=== PATIENT | female | born 1965 | race Caucasian/White ===

== ENCOUNTER 2016-05-06 05:07 | Inpatient (IN) | payer OTHER ==
[2016-05-02 12:07] LABS: HEMATOCRIT 36.2 % (36.0-48.0); HEMOGLOBIN 11.8 g/dL (12.0-16.0)
--- NOTE | ~2016-05-06 | OP ---
Record Of Operation [facility] [address] [place]. [address] NAME: DEREJE LEOS : 61 STATUS : ADM IN PAT#: [id number] AGE: 50 ADM/REG DATE : 05/06/16 MR#: [id number] REPORT SERV DATE: 05/07/16 DICTATED BY: EMERSON LUJAN II DATE: 05/07/16 REPORT STATUS : Draft TRANSCRIBED BY: MODCarola DATE: 05/07/16 DATE OF PROCEDURE: 05/06/2016 PREOPERATIVE DIAGNOSES: 1. 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 2. History of multiple thoracolumbar surgeries. 3. Cervicothoracic kyphosis, [id number] wound. 4. Failed spinal column stimulator system. 5. Sacroiliac joint dysfunction. POSTOPERATIVE DIAGNOSES: 1. 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 2. History of multiple thoracolumbar surgeries. 3. Cervicothoracic kyphosis, [id number]-ic-[id number] wound. 4. Failed spinal column stimulator system. 5. Sacroiliac joint dysfunction. PROCEDURE: 1. Pedicle subtraction osteotomy (lumbar three-column osteotomy, CPT code 2207). 2. Herzog-Saul osteotomies (posterior column osteotomy, CPT 2214). 3. Laminectomy and facetectomy L2-3, L3-4. 4. Posterolateral arthrodesis L2-3, L3-4. 5. Sacroiliac joint arthrodesis. 6. Removal of instrumentation T11-S1. 7. T12-S1 re-instrumentation. 8. Use of sacroiliac fixation (fixation to the ilium), use of bone morphogenic protein, and local autograft and allograft substitute. 9. Anterior interbody arthrodesis at L3. 10.Use of stereotactic imaging. 11.Removal of the spinal column stimulator leads and battery. SURGEON: Emerson Lujan M.D. FLUIDS: 1. 4200 mL LR. 2. 300 mL Cell Saver. 3. 500 mL albumin. ESTIMATED BLOOD LOSS: 500 mL. IMPLANTS: Alphatec and Globus. ANTIBIOTIC: Preoperatively. COMPLICATIONS: None. Record Of Operation [facility] [address] [place] [place]. [address] NAME: DEREJE LEOS : 61 STATUS : ADM IN PAT#: [id number] AGE: 50 ADM/REG DATE : 05/06/16 MR#: [id number] REPORT SERV DATE: 05/07/16 DICTATED BY: EMERSON LUJAN II DATE: 05/07/16 REPORT STATUS : Draft TRANSCRIBED BY: KALE DATE: 05/07/16 PREOPERATIVE HISTORY: This is a friendly, 50-year-old female with a very complicated surgical past. She had a high thoracic to lumbar fusion for scoliosis done very long ago. 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 She reports that she has been to several institutions including [place] and [place]. She overall has been very upset with her sagittal balance. She has severe flatback deformity. I have seen her in the office as well as talked to her on the phone regarding this severe problem. I have discussed also with one of my colleagues and reviewed her standing photographs of her stature showing her severe imbalance as well as standing scoliosis films. Her flatback deformity is severe and her positive sagittal imbalance shows a alexa line approximately 10 cm anterior to the center of the S1 vertebral body. I discussed with her that this will be a very large surgery. She was very interested in surgery to try and decrease her back pain. We also discussed that this is a very large surgery with significant complications, which could occur including neurologic complications from the pedicle subtraction osteotomy, and has also a risk of infection, as well as CSF leak, as well as DVT and pulmonary embolus. We discussed the fact that she would also need some pre and postop therapy for the hamstring stretching. We also discussed the recovery and the fact that nonunion with hardware failure was an approximately 8% to 10% complication and could require additional surgery. DESCRIPTION OF PROCEDURE: After informed consent was obtained, the patient was brought to the operating room at her request and general anesthesia achieved. Overall, this is a very complex case and overall took approximately eight hours. The surgery was intense from a time perspective and from a work perspective. We worked diligently during this time and overall, ultimately were satisfied with the intraoperative technical correction. At this point, after prepping and draping was performed, the incision was performed from approximately T10 down to the pelvis. The dissection was carried down. She had a the robust fusion mass at multiple levels, which required the use of multiple burs throughout the case to perform the surgery as well as remove bone from around the screws to facilitate hardware removal. The hardware removal was extremely difficult. We ultimately used a metal cutting bur to amputate the rods at approximately T10. We then removed the hardware from T10 down to the S1. There was a broken screw in the right L5 pedicle, which was impossible to remove. At this point, we then performed irrigation throughout the case. At this point, we then placed our screws. We placed new instrumentation into T12. We used stereotactic guidance with the CT scan. We were able to then place some new screws in the old holes and also placed some new screws in some of the pedicles, which had not been instrumented previously. At S1, we were able to place a screw as well. Next, we then used the Globus sacroiliac fixation device. This was a separate plate. We were able to use stereotactic guidance to cross the sacroiliac joint, as well as decorticate the cranial portion of this joint. At this point, we irrigated the area. Next, the 80 mm screws were placed into the ilium bilaterally. This was an 8.5 mm screw. Again, these were placed bilaterally. This was placed through the Globus sacroiliac plate. Record Of Operation [facility] [address] [facility] [place]. [address] NAME: DEREJE LEOS : 61 STATUS : ADM IN [facility]#: [id number] AGE: 50 ADM/REG DATE : 05/06/16 MR#: [id number] REPORT SERV DATE: 05/07/16 DICTATED BY: EMERSON LUJAN II DATE: 05/07/16 REPORT STATUS : Draft TRANSCRIBED BY: MODCarola DATE: 05/07/16 Next, we then used several different burs to now begin to break through the severe amount of fusion bone. We were able to use stereotactic guidance to remove the fusion bone from L2 down to L4. At this point, we then performed an aggressive facetectomy and laminectomy to decompress the L2, L3, and L4 nerve roots. This was done also in anticipation of three-column pedicle subtraction osteotomy. We now were able to well visualized the pedicles of L2, L3, and L4. We also were able to visualize the nerve roots of L2 and L3. At this point, we then began the complex task of the pedicle subtraction osteotomy. We then used the combination of the rongeurs and the high-speed bur to now remove the pedicle down to its entry point into the vertebral body. We then performed retraction of the L3 nerve root. Next, we then continued with the three-column pedicle subtraction osteotomy with the 6 mm coarse delvis. At this point, we were able to work through the pedicle under loupe magnification and head lamp to remove the cancellous bone. We then dissected along the lateral aspect of the vertebral body and placed a malleable. I was able to use stereotactic guidance to confirm the malleable was at anterolateral portion of the vertebral body. We were able to then break through the cortex of the vertebral body of L3. We also again then continued to remove cancellous bone from within the vertebral body up to the anterior portion of the vertebral body of L3. I then walked around to the opposite side of the table whereupon a similar takedown of the pedicle and the pedicle subtraction osteotomy was carried out through the right pedicle of L3. Once again, we then placed a malleable along the cortex of L3. We were now able to use the bur to break the cortex of the vertebral body laterally at L3. We once again removed cancellous bone using the large 6 mm bur. At this point, I felt we had achieved a significant amount of bone removal in preparation for the three-column pedicle subtraction osteotomy. At this point, we then placed a stabilizing short diandra from L2-L4 bilaterally. We already discussed preoperatively the for placing a small bump underneath her chest. At this point, the circulating nurse and NOTE SPECIALIST were able to place the bump underneath the chest. This was while we directly observed the osteotomy site and the dura. At this point, we then loosened all the set screws bilaterally to allow the osteotomy to close down and the significant correction of her deformity occurred. At this point, I was pleased with the coronal and sagittal balance. We then re-tightened both of the short rods to hold this correction and we then used AP and lateral imaging with the O-arm to confirm adequate correction. We were able to confirm that we had significantly shortened the posterior vertebral body in posterior column. At this point, we then contoured the longer rods and then placed the right diandra while the short static diandra was in place. The same was then performed on the left. Final tightening was then performed of the instrumentation from T12 to the ilium. Copious irrigation was then once again performed. Record Of Operation [facility] [address] [place]. [address] NAME: DEREJE LEOS : 61 STATUS : ADM IN PAT#: [id number] AGE: 50 ADM/REG DATE : 05/06/16 MR#: [id number] REPORT SERV DATE: 05/07/16 DICTATED BY: EMERSON LUJAN II DATE: 05/07/16 REPORT STATUS : Draft TRANSCRIBED BY: KALE DATE: 05/07/16 At this point. We then decorticated the sacroiliac joint bilaterally and placed local autograft and bone morphogenic protein. We then decorticated the lateral fusion mass of L2 and L4. The L3 transverse prostheses obviously had now been removed during the pedicle subtraction osteotomy. At this point, please note prior to closure of the osteotomy, we did place significant amount of local autograft, back into the very anterior portion of this to also help serve as a pivot point. We also placed some allograft substitute. At this point, the deep drain was placed x2. At this point, we then performed a muscle layer closure, followed by the fascial closure. The fascia was then closed followed by use of Aricept. Vancomycin powder was then also used followed by standard closure with PDS suture. Monocryl closure frank and also Dermabond. Standard dressings were applied. The patient was then extubated and transferred to PACU in stable condition. GUERO/KALE Emerson Lujan II, M.D. / [id number] CC: Emerson Lujan II, M.D.
--- NOTE | ~2016-05-06 | CN ---
Consultation Report [address] [place]. [address] NAME: DEREJE LEOS : 61 STATUS : ADM IN PAT#: [id number] AGE: 50 ADM/REG DATE : 05/06/16 MR#: [id number] REPORT SERV DATE: 05/08/16 DICTATED BY: BRANDY BARON DATE: 05/08/16 REPORT STATUS : Draft TRANSCRIBED BY: MODL DATE: 05/08/16 CONSULTATION DATE OF CONSULTATION: 05/08/2016 CONSULTATION REASON: Anemia. CONSULTING PHYSICIAN: Dr. Lujan and his PA. HISTORY OF PRESENT ILLNESS: This is a 50-year-old, with a complicated back surgery history, who was electively admitted to hospital for an elective back surgery. According to the information available, she had a very long operation room staying and estimated blood loss was 500 mL. Postoperative day #2 today, her H and H was found to be 5.6 and 17.1 from preop 11.82 and 36.2. Therefore, the hospitalist service was called for anemia evaluation and treatment. The patient already had order for transfused two units of blood. She finished the second unit of blood, and currently she feels comfortable. She did well with the physical therapy today. She was able to walk to the room through the room door. She is eating and drinking. She is more alert today. According to the report, she was very lethargic up until yesterday. She denies seeing any other blood. She does have a NILAM drain, two of them, and one of the drain is still draining about close to 500 mL for the last two days. REVIEW OF SYSTEMS: Denies any dizziness and shortness of breath. Then, denies any chest pain. No cough. Denies seeing any blood anywhere. Denies any dysuria. All of the systems reviewed and negative. PAST MEDICAL HISTORY: 1. Chronic back pain. 2. Chronic pain management. 3. Migraine. 4. Cleft palate. 5. Hearing aids, and the patient is hard of hearing. 6. Asthma. 7. GERD. 8. Hypothyroidism. SURGERIES: Consultation Report [address] [place]. [address] NAME: DEREJE LEOS : 61 STATUS : ADM IN PAT#: [id number] AGE: 50 ADM/REG DATE : 05/06/16 MR#: [id number] REPORT SERV DATE: 05/08/16 DICTATED BY: BRANDY BARON DATE: 05/08/16 REPORT STATUS : Draft TRANSCRIBED BY: KALE DATE: 05/08/16 1. Had an ear surgery as a child and a mouth surgery, and back surgery multiple times. 2. Cholecystectomy. 3. Colonoscopy. SOCIAL HISTORY: Denies any smoking and alcohol use. MEDICATIONS AT HOME: ProAir as needed, Klonopin 2 mg once at bedtime, Voltaren gel four times a day as needed, Flonase spray twice a day, Breo one puff twice a day, Neurontin 1200 mg three times a day, levothyroxine 125 mcg once a day, Lidoderm patch as needed, Claritin 10 mg once as needed, morphine sustained release 30 mg every 12 hours, Zantac 300 mg once at bedtime, Requip 0.5 mg once at bedtime, Imitrex 100 mg as needed for migraine, Zanaflex 6 mg twice a day as needed, and Ultram 50 mg four times a day. PHYSICAL EXAMINATION: VITAL SIGNS: Blood pressure 107/53, pulse was 100, temperature is 98.1, saturation is 99% on 3 L of oxygen, respiratory rate is 19. GENERAL APPEARANCE: She is alert, awake, not in acute distress. The patient has a very nasal congested sound. HEENT: Pupils are equal, round, and reactive to light. Conjunctivae, not anemic at the current moment. CHEST: Clear to auscultation bilaterally. Has a normal respiratory effort. CARDIOVASCULAR: There is no murmur, rub, or gallop, but is slightly tachycardic. ABDOMEN: Bowel sounds present. Soft. There is no organomegaly appreciated. EXTREMITIES: There is no pitting edema. LABORATORY DATA: Showed a hemoglobin was 5.6, hematocrit was 17.1, platelets 160, WBC was 10.2. ASSESSMENT/PLAN: 1. Acute blood loss anemia. 2. Postop anemia. 3. Chronic pain, stable. 4. The patient will be transfused one more unit of packed RBC. We will stop the IV fluids. Pain control will be done by oral medication per Surgery. We will watch and monitor NILAM drain amount, if they continue to have increased amount, the patient might need a surgical intervention. We will pay attention to this monitoring. EKL/MODL Brandy Baron M.D. / [id number] Consultation Report [address] [place]. [address] NAME: DEREJE LEOS : 61 STATUS : ADM IN PAT#: [id number] AGE: 50 ADM/REG DATE : 05/06/16 MR#: [id number] REPORT SERV DATE: 05/08/16 DICTATED BY: BRANDY BARON DATE: 05/08/16 REPORT STATUS : Draft TRANSCRIBED BY: KALE DATE: 05/08/16 CC: George Lujan II, M.D.
--- NOTE | ~2016-05-06 | DS ---
Discharge Summary [place] [place] [address] [place]. [address] NAME: DEREJE LEOS : 61 STATUS : DIS IN PAT#: [id number] AGE: 50 ADM/REG DATE : 05/06/16 MR#: [id number] REPORT SERV DATE: 05/24/16 DICTATED BY: EMERSON LUJAN II DATE: 05/23/16 REPORT STATUS : Draft TRANSCRIBED BY: KALE DATE: 05/23/16 Data Collection from hospitalization DISCHARGE DIAGNOSES: 1. Flat back deformity with severe loss of sagittal balance. 2. History of multiple thoracolumbar surgeries. 3. Cervicothoracic kyphosis - vnec-wf-qedunwsw wound. 4. Failed spinal column stimulator system. 5. Sacroiliac joint dysfunction. 6. Cleft palate. 7. Asthma. 8. Hypothyroidism. 9. Gastroesophageal reflux disease. 10.Hearing impairment. 11.Migraines. 12.Chronic back pain. CONSULTATIONS: Brandy Jensen M.D. PROCEDURES PERFORMED: Pedicle subtraction osteotomy (lumbar three-column osteotomy, CPT code 2207); Herzog-Saul osteotomy (posterior column osteotomy, CPT code 2214); laminectomy and facetectomy, L2-L3 and L3-L4; posterolateral arthrodesis, L2-L3 and L3-L4; sacroiliac joint arthrodesis; removal of instrumentation T11-S1; T12-S1 re-instrumentation; use of sacroiliac fixation (fixation to the ilium); use of bone morphogenic protein and local autograft and allograft substitute; anterior interbody arthrodesis at L3; use of stereotactic imaging; removal of spinal column stimulator leads and battery on 05/06/2016. PATHOLOGY: Lumbar spine removal and repair - orthopedic hardware (gross assessment). Fragmented bone and soft tissue with focal reactive and regenerative changes. No evidence was seen of an infectious or neoplastic process. MEDICATIONS: ProAir two puffs via inhaler every six hours as needed, Klonopin 2 mg at bedtime, Valium 5 mg three times a day as needed, Voltaren 2 g topically four times a day as needed, Flonase nasal spray one spray nasally twice a day, Breo Ellipta one puff via inhaler twice a day, Neurontin 1200 mg three times a day, levothyroxine 125 mcg at bedtime, Lidoderm one patch topically daily as needed, Claritin 10 mg daily as needed, Callie 30 mg every 12 hours as needed, Percocet 10/325 one to two tablets every four hours as needed, Phenergan 25 mg every six hours as needed, Zantac 300 mg at bedtime, Requip 0.5 mg at bedtime, Imitrex 100 mg as needed, Zanaflex 6 mg twice a day as needed, and Ultram 50 mg four times a day. CONDITION AT DISCHARGE: Stable. DISPOSITION: The patient was discharged home on a regular diet with activities as instructed. She would follow up with me on 05/31/2016. HOSPITAL COURSE: This is a 50-year-old female who had been complaining of lumbar spine- related symptoms. The symptoms were located in the lower back with radiation into the bilateral lower extremities with associated numbness and weakness. The patient has flat Discharge Summary [address] [place]. [address] NAME: DEREJE LEOS : 61 STATUS : DIS IN PAT#: [id number] AGE: 50 ADM/REG DATE : 05/06/16 MR#: [id number] REPORT SERV DATE: 05/24/16 DICTATED BY: EMERSON LUJAN II DATE: 05/23/16 REPORT STATUS : Draft TRANSCRIBED BY: KALE DATE: 05/23/16 back deformity with severe loss of sagittal balance and history of multiple thoracolumbar surgeries. She has cervicothoracic kyphosis, failed spinal column stimulator system, and sacroiliac joint dysfunction. Treatment options were discussed and it was elected to proceed with surgical intervention. She was admitted to the hospital at this time for further evaluation and treatment. Upon admission, she was taken to the operating room where she underwent the above-mentioned procedure. She tolerated this well, and there were no complications. On postop day #1, she was unsure of any improvement as she had not been out of bed yet. She was encouraged to mobilize. On 05/08/2016, she seemed to be more alert. She had good pain control. She was transfused as her H and H were somewhat low. She was slow to begin with mobilization. She was seen by Dr. Brandy Jensen regarding anemia. H and H had decreased to 5.6 and 17.1 from preoperative values of 11.82 and 36.2. She had been transfused two units of blood. She currently felt comfortable. She had done well with Physical Therapy earlier in the day, she was able to walk around in the room. She was more alert and was eating and drinking. She was felt to have acute blood loss anemia and postop anemia. Her chronic pain was stable. She was going to be transfused one more unit of packed red blood cells. IV fluids were going to be stopped. Pain control would be performed with oral medications. We would monitor the amount of NILAM drainage. On 05/09/2016, her lungs remained clear. She had no edema. Her abdomen was soft and nontender. Respiratory effort was normal. She said her pain was 8/10. She said her usual pain at home was 6/10. Milk of magnesia, senna, and Dulcolax were given. Synthroid was continued. O2 was being weaned. Imitrex would be given as needed for chronic migraine. She was evaluated by Physical Therapy. On 05/10/2016, her sagittal balance was much better. Orthostatic blood pressures were checked. She continued to progress. She continued to say she had horrible pain. She had been up all night. She was crying. Discharge planning was performed. On 05/12/2016, the patient said she was feeling much better. Her current pain was 6/10. She said she felt like the operation was a success. Discharge instructions were given. Due to her improved and stable condition, she was discharged home with the above-stated instructions. Information collected by: Emma Green I submit the above information as my discharge summary. TG/MODL Emerson Lujan II, M.D. / [id number] CC: Carol Nagel II, MD
[~2016-05-06 05:07] MED LIST: BREO ELLIPTA INH; CLARIT10 PO; FLONASE NAS; IMITREX100 MG PO; KADIANSR30 PO; KLONO1 PO; LEVOTHYROXIN25 MCG PO; LIDODERM TOP; NEUR600 PO; PR25 PO; PROAIRRESP INH; RANITIDINE300 MG PO; REQUIP1 PO; ULTRAM50 PO; VOLTAREN1 % TOP; ZANAFLEX 4 MG TA4 MG PO
[2016-05-07 05:19] LABS: BASOPHILS 0.1 %; BASOPHILS ABSOLUTE 0.02 10/3/uL (0.0-0.16); EOSINOPHILS 0.1 %; EOSINOPHILS ABSOLUTE 0.01 10/3/uL (0.0-0.53); HEMATOCRIT 22.9 % (36.0-48.0); HEMOGLOBIN 7.6 g/dL (12.0-16.0); IMMATURE GRANULOCYTES 0.4 %; IMMATURE GRANULOCYTES ABSOLUTE 0.07 10/3/uL (0.0-0.11); LYMPHOCYTES 4.5 %; LYMPHOCYTES ABSOLUTE 0.83 10/3/uL (0.67-4.30); MEAN CORPUS HGB CONC 33.2 g/dL (32.0-36.0); MEAN CORPUSCULAR HEMOGLOB 28.4 pg (26.0-34.0); MEAN CORPUSCULAR VOLUME 85.4 fL (80-100); MONOCYTES 2.7 %; MONOCYTES ABSOLUTE 0.51 10/3/uL (0.21-1.20); NEUTROPHILS 92.2 %; NEUTROPHILS ABSOLUTE 17.16 10/3/uL (2.02-8.40); PLATELET COUNT 171 10/3/uL (150-400); RBC DISTRIBUTION WIDTH 13.3 % (12.0-16.0); RED CELL COUNT 2.68 10/6/uL (4.0-5.6); WHITE BLOOD CELLS 18.6 10/3/uL (4.5-10.5)
[2016-05-07 05:20] LABS: MANUAL DIFF NO %
[2016-05-08 05:10] LABS: BASOPHILS 0 %; EOSINOPHILS 0.1 %; EOSINOPHILS ABSOLUTE 0.01 10/3/uL (0.0-0.53); HEMATOCRIT 17.1 % (36.0-48.0); HEMOGLOBIN 5.6 g/dL (12.0-16.0); IMMATURE GRANULOCYTES 0.5 %; IMMATURE GRANULOCYTES ABSOLUTE 0.05 10/3/uL (0.0-0.11); LYMPHOCYTES 11.2 %; LYMPHOCYTES ABSOLUTE 1.14 10/3/uL (0.67-4.30); MEAN CORPUS HGB CONC 32.7 g/dL (32.0-36.0); MEAN CORPUSCULAR HEMOGLOB 28.6 pg (26.0-34.0); MEAN CORPUSCULAR VOLUME 87.2 fL (80-100); MONOCYTES 7.8 %; MONOCYTES ABSOLUTE 0.79 10/3/uL (0.21-1.20); NEUTROPHILS 80.4 %; NEUTROPHILS ABSOLUTE 8.17 10/3/uL (2.02-8.40); PLATELET COUNT 160 10/3/uL (150-400); RBC DISTRIBUTION WIDTH 13.8 % (12.0-16.0); RED CELL COUNT 1.96 10/6/uL (4.0-5.6); WHITE BLOOD CELLS 10.2 10/3/uL (4.5-10.5)
[2016-05-08 05:12] LABS: MANUAL DIFF NO %
[2016-05-09 05:22] LABS: BASOPHILS 0 %; EOSINOPHILS 1.4 %; EOSINOPHILS ABSOLUTE 0.13 10/3/uL (0.0-0.53); IMMATURE GRANULOCYTES 0.2 %; IMMATURE GRANULOCYTES ABSOLUTE 0.02 10/3/uL (0.0-0.11); LYMPHOCYTES 20.3 %; LYMPHOCYTES ABSOLUTE 1.85 10/3/uL (0.67-4.30); MEAN CORPUS HGB CONC 33.1 g/dL (32.0-36.0); MEAN CORPUSCULAR HEMOGLOB 28.5 pg (26.0-34.0); MEAN CORPUSCULAR VOLUME 86.2 fL (80-100); MEAN PLATELET VOLUME 10.3 fL (9.2-13.0); MONOCYTES 9.2 %; MONOCYTES ABSOLUTE 0.84 10/3/uL (0.21-1.20); NEUTROPHILS 68.9 %; NEUTROPHILS ABSOLUTE 6.29 10/3/uL (2.02-8.40); PLATELET COUNT 151 10/3/uL (150-400); RBC DISTRIBUTION WIDTH 15.4 % (12.0-16.0); WHITE BLOOD CELLS 9.1 10/3/uL (4.5-10.5)
[2016-05-09 05:30] LABS: BUN (BLOOD UREA NITROGEN) 7 MG/DL (6-23); CALCIUM, SERUM 7.8 MG/DL (8.5-10.4); CHLORIDE, SERUM 104 MMOL/L (96-112); CO2 (CARBON DIOXIDE) 34 MMOL/L (24-34); GFR AFRICAN AMERICAN 129 ML/MIN (>=60); GFR NON AFRICAN AMERICAN 111 ML/MIN (>=60); GLUCOSE, SERUM 103 MG/DL (60-99); POTASSIUM, SERUM 3.8 MMOL/L (3.5-5.3); SODIUM, SERUM 145 MMOL/L (135-148)
[2016-05-09 05:48] LABS: HEMATOCRIT 26.9 % (36.0-48.0); HEMOGLOBIN 8.9 g/dL (12.0-16.0); MANUAL DIFF NO %; RED CELL COUNT 3.12 10/6/uL (4.0-5.6)
[2016-05-10 04:49] LABS: BASOPHILS 0.1 %; BASOPHILS ABSOLUTE 0.01 10/3/uL (0.0-0.16); EOSINOPHILS 2.4 %; EOSINOPHILS ABSOLUTE 0.25 10/3/uL (0.0-0.53); IMMATURE GRANULOCYTES 0.3 %; IMMATURE GRANULOCYTES ABSOLUTE 0.03 10/3/uL (0.0-0.11); LYMPHOCYTES 17.5 %; LYMPHOCYTES ABSOLUTE 1.81 10/3/uL (0.67-4.30); MEAN CORPUSCULAR HEMOGLOB 28.6 pg (26.0-34.0); MEAN CORPUSCULAR VOLUME 86.5 fL (80-100); MEAN PLATELET VOLUME 10.5 fL (9.2-13.0); MONOCYTES 6.8 %; NEUTROPHILS 72.9 %; NEUTROPHILS ABSOLUTE 7.53 10/3/uL (2.02-8.40); RBC DISTRIBUTION WIDTH 15.1 % (12.0-16.0); RED CELL COUNT 4.06 10/6/uL (4.0-5.6); WHITE BLOOD CELLS 10.3 10/3/uL (4.5-10.5)
[2016-05-10 04:50] LABS: HEMATOCRIT 35.1 % (36.0-48.0); HEMOGLOBIN 11.6 g/dL (12.0-16.0); MANUAL DIFF NO %; PLATELET COUNT 200 10/3/uL (150-400)
[2016-05-11 04:56] LABS: BASOPHILS 0.2 %; BASOPHILS ABSOLUTE 0.02 10/3/uL (0.0-0.16); EOSINOPHILS 2.8 %; EOSINOPHILS ABSOLUTE 0.33 10/3/uL (0.0-0.53); HEMATOCRIT 36.8 % (36.0-48.0); IMMATURE GRANULOCYTES 0.4 %; IMMATURE GRANULOCYTES ABSOLUTE 0.05 10/3/uL (0.0-0.11); LYMPHOCYTES 13.7 %; MEAN CORPUS HGB CONC 32.6 g/dL (32.0-36.0); MEAN CORPUSCULAR HEMOGLOB 28.4 pg (26.0-34.0); MEAN CORPUSCULAR VOLUME 87.2 fL (80-100); MEAN PLATELET VOLUME 10.2 fL (9.2-13.0); MONOCYTES 10.3 %; NEUTROPHILS 72.6 %; NEUTROPHILS ABSOLUTE 8.44 10/3/uL (2.02-8.40); PLATELET COUNT 228 10/3/uL (150-400); RBC DISTRIBUTION WIDTH 15.2 % (12.0-16.0); RED CELL COUNT 4.22 10/6/uL (4.0-5.6); WHITE BLOOD CELLS 11.6 10/3/uL (4.5-10.5)
[2016-05-11 04:59] LABS: MANUAL DIFF NO %
[2016-05-11 05:03] LABS: BUN (BLOOD UREA NITROGEN) 9 MG/DL (6-23); CALCIUM, SERUM 8.4 MG/DL (8.5-10.4); CHLORIDE, SERUM 99 MMOL/L (96-112); CO2 (CARBON DIOXIDE) 31 MMOL/L (24-34); CREATININE 0.56 MG/DL (0.55-1.02); GFR AFRICAN AMERICAN 124 ML/MIN (>=60); GFR NON AFRICAN AMERICAN 107 ML/MIN (>=60); GLUCOSE, SERUM 100 MG/DL (60-99); POTASSIUM, SERUM 3.7 MMOL/L (3.5-5.3); SODIUM, SERUM 141 MMOL/L (135-148)
[2016-05-12] MEDS ORDERED: V5 PO (10:16)
[2016-05-12] MEDS ORDERED: PERCOCET 10/3251 TAB PO (10:16)
[2016-10-03] MEDS ORDERED: NORCO1 TAB PO (12:16)
[2016-10-03] MEDS ORDERED: AMITIZA24 PO (12:18)
[2016-10-03] MEDS ORDERED: CELEXA20 PO (12:18)
[2016-10-03] MEDS ORDERED: DANTRIUM50 MG PO (12:22)
[2016-10-03] MEDS ORDERED: ZANTAC300 MG PO (12:23)
[2016-10-03] MEDS ORDERED: B12250T PO (12:27)
[2016-10-03] MEDS ORDERED: B COMPLETE PO (12:28)
[2016-10-03] MEDS ORDERED: VITC500 PO (12:28)
[2016-10-11] MEDS ORDERED: V2 PO (09:25)
[2016-10-11] MEDS ORDERED: DIL2TAB PO (09:25)
[2016-10-11] MEDS ORDERED: MSCONT15 PO (09:26)
== END 2016-05-12 13:30 | disposition home or self-care (01) | DRG 457 ==
LOC: SDC/OF 05:07 → 3SO 20:13
PROVIDERS: Internal Medicine; Nurse Practitioner Family; Orthopaedic Surgery
PROC: 0SG00AJ Fusion of Lumbar Vertebral Joint with Interbody Fusion Device, Posterior Approach, Anterior Column, Open Approach (ICD-10-PCS; 2016-05-06)
PROC: 4A11X4G Monitoring of Peripheral Nervous Electrical Activity, Intraoperative, External Approach (ICD-10-PCS; 2016-05-06)
PROC: 0SG10Z1 (ICD-10-PCS; principal; 2016-05-06 07:00)
PROC: 0SP004Z Removal of Internal Fixation Device from Lumbar Vertebral Joint, Open Approach (ICD-10-PCS; 2016-05-06 07:00)
PROC: 0RP604Z Removal of Internal Fixation Device from Thoracic Vertebral Joint, Open Approach (ICD-10-PCS; 2016-05-06 07:00)
PROC: 0RG60Z1 (ICD-10-PCS; 2016-05-06 07:00)
PROC: 30233N0 Transfusion of Autologous Red Blood Cells into Peripheral Vein, Percutaneous Approach (ICD-10-PCS; 2016-05-08)
DX: M40.30 Flatback syndrome, site unspecified (principal); T85.890A Other specified complication of nervous system prosthetic devices, implants and grafts, initial encounter; M41.83 Other forms of scoliosis, cervicothoracic region; D62 Acute posthemorrhagic anemia; K21.9 Gastro-esophageal reflux disease without esophagitis; E03.9 Hypothyroidism, unspecified
CPT/HCPCS: 36415; 36430; 80048; 82962; 83735; 84703; 85014; 85018; 85025; 86850; 86900; 86901; 86920; 87641; 88300; 88304; 88311; 93005; 94640; 97110-GP; 97116-GP; 97162-GP; A9270-GY; C1713; C1768; J1170; J1580; J1644; J2250; J2270; J2405; J2710; J3010; J3370; P9016; P9045